=== PATIENT | female | born 1960 | race Caucasian/White ===

== ENCOUNTER 2017-02-08 12:30 | Emergency (ER) | payer MEDICAID ==
[~2017-02-08] VITALS: Ht 142.2 cm; Wt 58.0 kg
[2017-02-08 13:18] VITALS: BP 142/77
== END 2017-02-08 18:33 | disposition home or self-care (01) ==
LOC: ER 15:45
DX: J02.9 Acute pharyngitis, unspecified (principal); M54.9 Dorsalgia, unspecified; E11.9 Type 2 diabetes mellitus without complications; Z86.73 Personal history of transient ischemic attack (TIA), and cerebral infarction without residual deficits
CPT/HCPCS: 71045; 87804; 99285